=== PATIENT | male | born 1955 | race African-American/Black ===

== ENCOUNTER → 2023-05-31 | Outpatient (CLI) | payer OTHER ==
[2023-06-01 07:07] LABS: RUBEOLA (MEASLES) IGG >300.0 AU/mL (Immune >16.4); VARICELLA ZOSTER IGG AB TITER 2757 index (Immune >165)
== END | disposition home or self-care (01) ==
LOC: LABMN 16:04
PROVIDERS: ATTEND Internal Medicine
DX: Z02.1 Encounter for pre-employment examination (principal)
CPT/HCPCS: 86706; 86735; 86762; 86765; 86787

== ENCOUNTER 2023-09-05 03:33 | Emergency (ER) | payer MEDICAID ==
[~2023-09-05] VITALS: Ht 185.4 cm; Wt 82.0 kg
[2023-09-05 03:40] VITALS: BP 102/64; PULSE 75; RESP 20; TEMP 98
[2023-09-05] MEDS ORDERED: KETOROLAC TROMETHAMINE 30 MG/ML VIAL IM ONE (04:15)
[2023-09-05] MEDS ORDERED: CYCL-448 PO (06:24)
== END 2023-09-05 07:24 | disposition home or self-care (01) ==
LOC: EMS 03:33
DX: M19.90 Unspecified osteoarthritis, unspecified site (principal); Z98.890 Other specified postprocedural states
CPT/HCPCS: 99283; 72040; 96372; J1885

== ENCOUNTER 2023-10-12 23:05 | Emergency (ER) | payer MEDICAID ==
[~2023-10-12] VITALS: Ht 185.4 cm; Wt 77.3 kg
[~2023-10-12 23:05] MED LIST: CYCL-448 PO
[2023-10-12] MEDS ORDERED: KETOROLAC TROMETHAMINE 30 MG/ML VIAL IVP ONE (23:30)
[2023-10-12 23:42] LABS: ANION GAP 9 mmol/L (8-16); BASOPHILS % (AUTO) 1.3 % (0.0-2.0); CALCIUM, TOTAL 9.7 mg/dL (8.8-10.5); CARBON DIOXIDE 31 mmol/L (22-29); CHLORIDE 100 mmol/L (98-107); CREATININE 1.28 mg/dL (0.60-1.30); EOSINOPHILS % (AUTO) 10.4 % (1.0-6.0); GLOMERULAR FILTR. RATE CALC > 60 mL/min (>60); GLUCOSE,RANDOM 76 mg/dL (70-110); HEMATOCRIT 45.6 % (41-53); HEMOGLOBIN 15.5 g/dL (13.5-17.5); LYMPHOCYTES # (AUTO) 3.4 K/uL (1.0-4.8); LYMPHOCYTES % (AUTO) 37.2 % (22.0-44.0); MEAN CORPUSCULAR HEMOGLOBIN 32.9 pg (26.0-34.0); MEAN CORPUSCULAR HGB CONC 33.9 G/dL (31.0-37.0); MEAN CORPUSCULAR VOLUME 97 fL (80-100); MONOCYTES # (AUTO) 0.7 K/uL (0.1-1.0); MONOCYTES % (AUTO) 7.3 % (2.0-9.0); NEUTROPHILS % (AUTO) 43.8 % (40.0-70.0); RED BLOOD CELL COUNT(AUTO) 4.71 MIL/uL (4.50-5.90); RED CELL DISTRIBUTION WIDTH 13.5 % (11.5-14.5); SODIUM SERUM 140 mmol/L (136-145); UREA NITROGEN, BLOOD 18 mg/dL (7-18)
[2023-10-12 23:50] LABS: ALANINE AMINOTRANSFERASE 54 U/L (12-78); ALBUMIN 4.4 g/dL (3.4-5.0); ALKALINE PHOSPHATASE 115 U/L (46-116); ASPARTATE AMINOTRANSFERASE 36 U/L (15-37); BILIRUBIN,TOTAL 0.3 mg/dL (0.1-1.0); LIPASE 24 U/L (16-77); TOTAL PROTEIN, SERUM 8.3 g/dL (6.4-8.2)
[2023-10-13 00:06] LABS: PLATELET COUNT (AUTO) 202 K/uL (150-450)
[2023-10-13 00:37] LABS: APPEARANCE,URINE CLEAR (CLEAR); BILIRUBIN,URINE NEGATIVE (NEGATIVE); COLOR,URINE LIGHT YELLOW (YELLOW); GLUCOSE, URINE (UA) NEGATIVE (NEGATIVE); KETONES,URINE NEGATIVE (NEGATIVE); LEUKOCYTE ESTERASE ,URINE NEGATIVE (NEGATIVE); NITRATE,URINE NEGATIVE (NEGATIVE); OCCULT BLOOD,URINE NEGATIVE (NEGATIVE); PROTEIN,URINE TRACE mg/dL (NEGATIVE); SPECIFIC GRAVITIY, URINE 1.024 (1.003-1.030); UROBILINOGEN,URINE <=1.0 mg/dL (<=1.0)
[2023-10-13 01:45] VITALS: BP 121/88; PULSE 68; RESP 15
[2023-10-13] MEDS ORDERED: IBUP-1492 PO (02:14)
[2023-10-13] MEDS ORDERED: TRAM-559 PO (02:14)
== END 2023-10-13 01:48 | disposition home or self-care (01) ==
LOC: EMS 23:07
DX: R10.31 Right lower quadrant pain (principal); Z98.890 Other specified postprocedural states
CPT/HCPCS: 99285; 96374; 80053; 81003; 83690; 85025; 36415; 93005; 74176; J1885

== ENCOUNTER 2024-05-30 04:15 | Emergency (ER) | payer SELFPAY ==
[~2024-05-30] VITALS: Ht 185.4 cm; Wt 77.3 kg
[~2024-05-30 04:15] MED LIST changes: +IBUP-1492 PO; +TRAM50TA5 PO
[2024-05-30 04:23] VITALS: TEMP 97.5
[2024-05-30] MEDS: PROPARACAINE HCL 0.5% 15 ML OPHTHALMIC SOLUTION OS ONE (04:50)
[2024-05-30] MEDS: FLUORESCEIN SODIUM 1 MG STRIP OS ONE (04:50)
[2024-05-30] MEDS: ERYTHROMYCIN 0.5% 3.5 GM TUBE OPHTHALMIC OINTMENT OS ONE (05:23)
[2024-05-30 05:33] VITALS: BP 140/80; PULSE 78; RESP 18; O2SAT 98
== END 2024-05-30 05:36 | disposition home or self-care (01) ==
LOC: EMS 04:17
DX: T15.02XA Foreign body in cornea, left eye, initial encounter (principal); W44.8XXA Other foreign body entering into or through a natural orifice, initial encounter; Y93.89 Activity, other specified; Y92.89 Other specified places as the place of occurrence of the external cause; Y99.8 Other external cause status
CPT/HCPCS: 99283

== ENCOUNTER 2024-08-13 00:35 | Emergency (ER) | payer SELFPAY ==
[~2024-08-13] VITALS: Ht 188 cm; Wt 81.8 kg
[2024-08-13 00:42] VITALS: TEMP 98.1
[2024-08-13 01:20] VITALS: BP 110/74; PULSE 73; RESP 16; O2SAT 99
[2024-08-13] MEDS ORDERED: DOXY50 PO (03:40)
[2024-08-13] MEDS: DOXYCYCLINE HYCLATE 100 MG TABLET PO ONE (03:46)
[2024-08-13] MEDS: TraMADol HCL 50 MG TABLET PO ONE (03:46)
== END 2024-08-13 03:53 | disposition home or self-care (01) ==
LOC: EMS 00:36
DX: L03.312 Cellulitis of back [any part except buttock and flank] (principal); M54.9 Dorsalgia, unspecified; I48.91 Unspecified atrial fibrillation; Z95.0 Presence of cardiac pacemaker
CPT/HCPCS: 99283

== ENCOUNTER 2024-11-02 23:01 | Emergency (ER) | payer OTHER ==
[~2024-11-02] VITALS: Ht 185.4 cm; Wt 85.5 kg
[~2024-11-02 23:01] MED LIST changes: +DOXY50 PO
[2024-11-02 23:13] VITALS: TEMP 97.8
[2024-11-03] MEDS: MORPHINE SULFATE 2 MG/ML SYRINGE IVP ONE (00:46)
[2024-11-03] MEDS: SODIUM CHLORIDE 0.9% 1,000 ML IV ONE (00:46)
[2024-11-03 01:00] VITALS: BP 105/75; PULSE 68; RESP 18; O2SAT 99
[2024-11-03 01:04] LABS: BASOPHILS % (AUTO) 0.5 % (0.0-2.0); EOSINOPHILS % (AUTO) 7.5 % (1.0-6.0); HEMATOCRIT 46.5 % (41-53); HEMOGLOBIN 15.4 g/dL (13.5-17.5); LYMPHOCYTES # (AUTO) 3.3 K/uL (1.0-4.8); LYMPHOCYTES % (AUTO) 41.6 % (22.0-44.0); MEAN CORPUSCULAR HEMOGLOBIN 32.3 pg (26.0-34.0); MEAN CORPUSCULAR HGB CONC 33.2 G/dL (31.0-37.0); MEAN CORPUSCULAR VOLUME 97 fL (80-100); MONOCYTES # (AUTO) 0.7 K/uL (0.1-1.0); MONOCYTES % (AUTO) 8.4 % (2.0-9.0); NEUTROPHILS # (AUTO) 3.3 K/uL (1.8-7.7); PLATELET COUNT (AUTO) 199 K/uL (150-450); RED BLOOD CELL COUNT(AUTO) 4.78 MIL/uL (4.50-5.90); RED CELL DISTRIBUTION WIDTH 13.4 % (11.5-14.5); WHITE BLOOD COUNT (AUTO) 7.9 K/uL (4.5-11.0)
[2024-11-03 01:08] LABS: ANION GAP 10 mmol/L (8-16); CALCIUM, TOTAL 8.8 mg/dL (8.8-10.5); CARBON DIOXIDE 26 mmol/L (22-29); CHLORIDE 105 mmol/L (98-107); CREATININE 1.19 mg/dL (0.60-1.30); GLOMERULAR FILTR. RATE CALC > 60 mL/min (>60); GLUCOSE,RANDOM 97 mg/dL (70-110); POTASSIUM 4.4 mmol/L (3.5-5.1); SODIUM SERUM 141 mmol/L (136-145); UREA NITROGEN, BLOOD 23 mg/dL (7-18)
[2024-11-03 01:09] LABS: LIPASE 22 U/L (16-77)
== END 2024-11-03 05:26 | disposition home or self-care (01) ==
LOC: EMS 23:45
DX: K40.90 Unilateral inguinal hernia, without obstruction or gangrene, not specified as recurrent (principal); Z95.0 Presence of cardiac pacemaker
CPT/HCPCS: 99285; 80048; 83690; 85025; 74176; 96374; 96361; J2270; J7030; 36415-L1; 36415-TC

== ENCOUNTER 2025-08-24 23:18 | Emergency (ER) | payer OTHER ==
[~2025-08-24] VITALS: Ht 185.4 cm; Wt 81.8 kg
[2025-08-24 23:30] VITALS: BP 120/80; PULSE 69; RESP 16; TEMP 97.7; O2SAT 100
[2025-08-25] MEDS: LIDOCAINE 5% TRANSDERMAL PATCH TD ONE (00:34)
[2025-08-25] MEDS: KETOROLAC TROMETHAMINE 30 MG/ML VIAL IM ONE (00:34)
[2025-08-25] MEDS ORDERED: LIDO-57 TP (02:57)
[2025-08-25] MEDS ORDERED: CYCL-448 PO (02:57)
== END 2025-08-25 03:04 | disposition home or self-care (01) ==
LOC: EMS 23:18
DX: M47.812 Spondylosis without myelopathy or radiculopathy, cervical region (principal); I48.91 Unspecified atrial fibrillation; Z95.0 Presence of cardiac pacemaker; V49.9XXA Car occupant (driver) (passenger) injured in unspecified traffic accident, initial encounter; Y93.89 Activity, other specified; Y92.89 Other specified places as the place of occurrence of the external cause; Y99.8 Other external cause status
CPT/HCPCS: 99283; 72040; 96372; J1885